=== PATIENT | female | born 1980 | race Caucasian/White ===

== ENCOUNTER 2017-01-02 14:50 | Emergency (ER) | payer OTHER ==
[2017-01-02 21:54] VITALS: BP 134/99
== END 2017-01-02 21:54 | disposition home or self-care (01) ==
LOC: ED 14:50
DX: N83.201 Unspecified ovarian cyst, right side (principal); I10 Essential (primary) hypertension; E07.9 Disorder of thyroid, unspecified
CPT/HCPCS: J1885

== ENCOUNTER 2017-01-08 23:22 | Emergency (ER) | payer OTHER ==
[2017-01-09 00:16] LABS: BASOPHIL % 0.6 % (0-2); PLATELET COUNT 348 x10^3mcL (130-400); RED CELL DISTRIBUTION WIDTH 14.4 % (11.5-14.5)
[2017-01-09 00:25] LABS: AMPHETAMINE QUAL UR NONE DETECTED (NEG <=1000)
[2017-01-09 00:26] LABS: CALCIUM 8.6 mg/dL (8.5-10.1); CARBON DIOXIDE 28.5 mmol/L (21-32); CHLORIDE SERUM 99 mmol/L (98-107); GFR1 > 60 mL/min; GLUCOSE SERUM 97 mg/dL (74-106); POTASSIUM SERUM 3.4 mmol/L (3.5-5.1); SODIUM SERUM 139 mmol/L (136-145)
[2017-01-09 00:30] LABS: ALBUMIN 3.6 g/dL (3.4-5.0); ALKALINE PHOSPHATASE 79 U/L (46-116); ALT/SGPT 31 U/L (14-59); AMYLASE 45 U/L (25-115); AST/SGOT 18 U/L (15-37); BILIRUBIN TOTAL 0.2 mg/dL (0.20-1.00); LIPASE 121 IU/L (73-393); TOTAL PROTEIN, SERUM 7.1 g/dL (6.4-8.2)
[2017-01-09 01:12] VITALS: BP 134/71
== END 2017-01-09 01:12 | disposition home or self-care (01) ==
LOC: ED 23:22
PROVIDERS: Emergency Medicine
DX: R10.32 Left lower quadrant pain (principal); G89.29 Other chronic pain; I10 Essential (primary) hypertension; F31.9 Bipolar disorder, unspecified; Z79.899 Other long term (current) drug therapy; Z88.1 Allergy status to other antibiotic agents; Z88.2 Allergy status to sulfonamides
CPT/HCPCS: 80307; J1170; Q0162

== ENCOUNTER 2018-07-17 07:36 | Emergency (ER) | payer OTHER ==
[~2018-07-17] VITALS: Ht 167.6 cm; Wt 111.1 kg
[2018-07-17 07:40] VITALS: Ht 167.6 cm; Wt 111.1 kg
[2018-07-17 09:04] VITALS: BP 116/72
== END 2018-07-17 09:04 | disposition home or self-care (01) ==
LOC: ED 07:36
PROC: 3E023NZ Introduction of Analgesics, Hypnotics, Sedatives into Muscle, Percutaneous Approach (ICD-10-PCS; principal; 2018-07-17)
DX: R07.89 Other chest pain (principal); I10 Essential (primary) hypertension; J45.909 Unspecified asthma, uncomplicated; E03.9 Hypothyroidism, unspecified
CPT/HCPCS: J1885

== ENCOUNTER 2019-07-05 15:30 | Emergency (ER) | payer OTHER ==
[~2019-07-05] VITALS: Ht 167.6 cm; Wt 116.1 kg
[2019-07-05 15:41] VITALS: BP 133/81; Ht 167.6 cm; Wt 116.1 kg
== END 2019-07-05 17:53 | disposition home or self-care (01) ==
LOC: ED 15:30
DX: N39.0 Urinary tract infection, site not specified (principal); B34.9 Viral infection, unspecified; I10 Essential (primary) hypertension; F31.9 Bipolar disorder, unspecified; Z90.49 Acquired absence of other specified parts of digestive tract; Z88.1 Allergy status to other antibiotic agents; Z88.2 Allergy status to sulfonamides

== ENCOUNTER 2019-07-08 13:18 | Emergency (ER) | payer OTHER ==
[~2019-07-08] VITALS: Ht 167.6 cm; Wt 114.8 kg
[2019-07-08 13:37] VITALS: BP 136/69; Ht 167.6 cm; Wt 114.8 kg
== END 2019-07-08 14:34 | disposition home or self-care (01) ==
LOC: ED 13:18
DX: N39.0 Urinary tract infection, site not specified (principal); R11.10 Vomiting, unspecified; R51 Headache; I10 Essential (primary) hypertension; F31.9 Bipolar disorder, unspecified; E03.9 Hypothyroidism, unspecified; Z90.49 Acquired absence of other specified parts of digestive tract; Z88.1 Allergy status to other antibiotic agents; Z88.2 Allergy status to sulfonamides

== ENCOUNTER 2020-08-19 11:52 | Emergency (ER) | payer OTHER ==
[~2020-08-19] VITALS: Ht 167.6 cm; Wt 118.8 kg
[2020-08-19 11:54] VITALS: Ht 167.6 cm; Wt 118.8 kg
[2020-08-19 14:25] VITALS: BP 127/94
== END 2020-08-19 14:25 | disposition home or self-care (01) ==
LOC: ED 11:52
DX: B34.9 Viral infection, unspecified (principal); I10 Essential (primary) hypertension; Z88.2 Allergy status to sulfonamides; Z20.828 Contact with and (suspected) exposure to other viral communicable diseases
CPT/HCPCS: 87804; J1885; U0003